=== PATIENT | male | born 1970 | race African-American/Black ===

== ENCOUNTER 2020-03-06 00:03 | Emergency (ER) | payer OTHER ==
[~2020-03-06] VITALS: Ht 172.7 cm; Wt 114.8 kg
[2020-03-06 00:05] VITALS: BP 144/82
[2020-03-06] MEDS ORDERED: LISINOPRIL-HCT1 EACH PO (00:20)
== END 2020-03-06 01:03 | disposition home or self-care (01) ==
LOC: ER 00:03
DX: M79.605 Pain in left leg (principal); M79.604 Pain in right leg; R25.2 Cramp and spasm; I10 Essential (primary) hypertension; E11.9 Type 2 diabetes mellitus without complications; Z79.899 Other long term (current) drug therapy; V43.52XA Car driver injured in collision with other type car in traffic accident, initial encounter; Y93.89 Activity, other specified; Y92.89 Other specified places as the place of occurrence of the external cause; Y99.8 Other external cause status